=== PATIENT | male | born 1995 | race Caucasian/White ===

== ENCOUNTER 2020-09-01 07:32 | Emergency (ER) | payer SELFPAY ==
[2020-09-01 07:51] VITALS: BP 117/84; PULSE 72; TEMP 98.6; BMI 19.3
[2020-09-01] MEDS ORDERED: BUPIVACAINE HCL/PF 0.5% (5 MG/ML) 30 ML VIAL IJ STA (07:53)
--- NOTE | 2020-09-01 07:55 | PDOC ---
History of Present Illness - General Chief Complaint: Toothache Stated Complaint: TOOTHACHE Time Seen by Provider: 09/01/20 07:53 - History of Present Illness Initial Comments: 09/01/20 07:54 HPI: This is a 24 y/o male with no pmh presenting to the ED because of tooth pain. He reports that he gets these episodes frequently, and the pain has been flaring up over the past 2 days. He has previous gotten lidocaine injections for the pain, but he has not seen a dentist. He denies any fever/chills, nausea/vomiting, pain in his throat or neck, pooling of saliva, or ear pain. ROS: GENERAL/CONSTITUTIONAL: No fever or chills, HEENT: No ear pain. No sore throat. CARDIOVASCULAR: No chest pain, palpitations RESPIRATORY: No shortness of breath or cough GASTROINTESTINAL: No nausea or vomiting MUSCULOSKELETAL: No joint or muscle pain. NEUROLOGIC: No headache,focal weakness. HEMATOLOGIC/LYMPHATIC: No swollen lymph nodes or history of easy bleeding PMH: Denied PSx: Denied Social Hx: Denied etoh, tobacco, drug use Meds: See nurse note Allergies: See nurse note PE: GENERAL: Awake, alert, and fully oriented, in no acute distress. Patient is holding his jaw in pain. HEENT: Normocephalic, atraumatic. PERRLA, EOMI. Poor dentition large dental caries on #18 and #30 molars. No abscess. NECK: Normal ROM. No lymphadenopathy CARDIOVASCULAR: Regular rate and rhythm, normal S1 and S2 PULMONARY: No respiratory distress. Breath sounds equal, clear to auscultation bilaterally. ABDOMEN: Soft, nontender EXTREMITIES: Normal range of motion, no edema NEUROLOGICAL: Cranial nerves II through XII grossly intact. Normal speech, normal gait SKIN: Warm, Dry, normal turgor, no rashes or lesions noted. Normal capillary refill. PSYCHIATRIC: Cooperative. Appropriate affect. MDM: This is a 24 y/o male with no pmh presenting to the ED because of tooth pain. - He is afebrile with no systemic symptoms. - Large dental caries in #18 and #30 molars - Will give 60mg IM toradol for pain control - Used .8cc bupivicaine for local anesthesia on buccal side of #30 molar - Used .7cc bupivicaine for local anesthesia on buccal side of #18 molar Patient reports some relief from pain Will give patient information for urgent dental care which opens in 10 minutes so that he can have the teeth pulled - Patient is stable to d/c and recommended that he go immediately to urgent care Past History - Medical History Allergies/Adverse Reactions: Allergies Allergy/AdvReac Type Severity Reaction Status Date / Time No Known Allergies Allergy Verified 09/01/20 07:43 - Psycho-Social/Smoking History Smoking History: Never smoked - Substance Abuse Hx (Audit-C & DAST Scrn) How often the patient has a drink containing alcohol: Never Score: In Men: 4 or > Positive; In Women: 3 or > Positive: 0 Screen Result (Pos requires Nsg. Audit-10AR): Negative In the last yr the pt used illegal drug/Rx for NonMed reason: No Score: Yes response is considered Positive: 0 Screen Result (Positive result requires Nsg. DAST-10): Negative *Physical Exam - Vital Signs Last Vital Signs Temp Pulse Resp BP Pulse Ox 98.6 F 72 18 117/84 100 09/01/20 07:43 09/01/20 07:43 09/01/20 07:43 09/01/20 07:43 09/01/20 07:43 Discharge - Discharge Information Problems reviewed: Yes Clinical Impression/Diagnosis: Dental caries Condition: Stable Disposition: HOME - Follow up/Referral - Patient Discharge Instructions Patient Printed Discharge Instructions: DI for Tooth Decay, DI for Dental Pain Additional Instructions: Le administramos medicamentos en las encas para aliviar el dolor. Debe acudir a la atencin urgente de dentistas. Abren a las nueve. Hay dos ubicaciones. Estas son las direcciones. [address] [place] [address] Regrese al servicio de urgencias si tiene problemas para tragar, fiebre o si el dolor se extiende a otras partes de la boca. Print Language: IRAQI - Post Discharge Activity
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
--- NOTE | 2020-09-01 08:03 | PDOC ---
Attending Attestation - Resident Resident Name: Susy Garzon - ED Attending Attestation I have performed the following: I have examined & evaluated the patient, The case was reviewed & discussed with the resident, I agree w/resident's findings & plan, Exceptions are as noted - HPI HPI: 24 yo M presents with dental pain. Localized to lower jaw, both sides. Denies fever, facial swelling. +Lower jaw pain. - Physicial Exam PE: GENERAL: Awake, alert, and fully oriented, in no acute distress HEAD: No signs of trauma EYES: PERRLA, EOMI, sclera anicteric, conjunctiva clear ENT: Auricles normal inspection, hearing grossly normal, nares patent, oropharynx clear without exudates. Moist mucosa. +Poor dentition with multiple dental caries. No buccal mucosal tenderness, no buccal mucosal edema. NECK: Normal ROM, supple, no lymphadenopathy, JVD, or masses NEUROLOGICAL: Cranial nerves II through XII grossly intact. Normal speech, normal gait. Motor and sensation intact SKIN: Warm, dry, normal turgor, no rashes or lesions noted. - Medical Decision Making Patient with multiple dental caries presenting with dental pain to two of his molars. Local infiltrate with bupivacaine in ED. Recommended urgent f/u in dental urgent care, as both teeth need to be extracted. No signs of abscess. Discharge - Discharge Information Problems reviewed: Yes Clinical Impression/Diagnosis: Dental caries Condition: Stable Disposition: HOME - Follow up/Referral - Patient Discharge Instructions - Post Discharge Activity
[2020-09-01] MEDS ORDERED: KETOROLAC TROMETHAMINE 60 MG/2 ML VIAL IM ONE (08:09)
[2020-09-01] MEDS ORDERED: KETOROLAC TROMETHAMINE 60 MG/2 ML VIAL ONE (08:51)
== END 2020-09-01 10:31 | disposition home or self-care (01) ==
LOC: JER 07:32
PROC: 3E0233Z Introduction of Anti-inflammatory into Muscle, Percutaneous Approach (ICD-10-PCS; principal; 2020-09-01)
DX: K02.9 Dental caries, unspecified (principal)
CPT/HCPCS: 99284-25